=== PATIENT | female | born 1965 | race Caucasian/White ===

== ENCOUNTER 2016-09-06 14:34 | Outpatient (CLI) | payer OTHER ==
[~2016-09-06 14:34] MED LIST: ATENOLOL50 MG PO; LORAZEPAM0.5 MG PO; RISPERDAL1 MG PO; TRAZODONE PO
--- NOTE | 2016-09-06 15:36 | DIAGNOSTIC IMAGING REPORT ---
PROCEDURE: CT ABDOMEN/PELVIS W/O CONTRAST INDICATION: Right flank pain and hematuria. TECHNIQUE: Noncontrast axial images with sagittal and coronal reformations. COMPARISON: Compared CT abdomen and pelvis on 12/22/2014. FINDINGS: ABDOMEN: Kidneys and ureters are normal. No evidence of urinary tract calculus or obstruction. Moderate stool throughout the colon. Small bowel pattern is normal. Appendix is normal. Gallbladder, liver, spleen, pancreas, and aorta are normal. Mild levoscoliosis and moderate degenerative changes of the lumbar spine. There is a 20% old compression deformity of the L1 vertebral body. PELVIS: Uterus and adnexal structures are normal. No evidence of free fluid. IMPRESSION: 1. Normal kidneys and ureters. No evidence of urinary tract obstruction or calculus. 2. Moderate stool throughout the colon. Consider obstipation. 3. There is a 20% compression fracture of the superior endplate of L1 which appears old, although new since 12/22/2014. 4. Findings discussed with Dr. Isaac. All CT scans at this facility use dose modulation, iterative reconstruction, and/or weight-based dosing when appropriate to reduce radiation dose to as low as reasonably achievable.
== END 2016-09-06 23:00 ==
LOC: CT SRH 14:34
DX: R10.9 Unspecified abdominal pain (principal); K59.00 Constipation, unspecified
CPT/HCPCS: 90469; 90627

== ENCOUNTER → 2016-09-09 | Outpatient (CLI) | payer OTHER ==
--- NOTE | 2016-09-09 17:19 | DIAGNOSTIC IMAGING REPORT ---
PROCEDURE: US COMPLETE PELVIC W/TRANSVAG INDICATION: Right pelvic pain. TECHNIQUE: Transabdominal and endovaginal willson scale and color Doppler sonographic images of the female pelvis were obtained. [employer] (, SRT) COMPARISON: Comparison is made to CT abdomen and pelvis on 09/06/2016. FINDINGS: TRANSABDOMINAL SCANS: Uterus is of normal size (5.0 x 3.7 x 4.9 cm). Kidneys are normal TRANSVAGINAL SCANS: Endometrial thickness is normal (6 mm). Right ovary is of normal size (2.5 cm) with normal vascularity. Left ovary is not visualized (presumed atrophic). IMPRESSION: 1. Normal pelvic ultrasound. 2. Findings called to CRISTIAN March.
--- NOTE | 2016-09-09 17:19 | DIAGNOSTIC IMAGING REPORT ---
PROCEDURE: US COMPLETE PELVIC W/TRANSVAG INDICATION: Right pelvic pain. TECHNIQUE: Transabdominal and endovaginal willson scale and color Doppler sonographic images of the female pelvis were obtained. [employer] Trimmer (, SRT) COMPARISON: Comparison is made to CT abdomen and pelvis on 09/06/2016. FINDINGS: TRANSABDOMINAL SCANS: Uterus is of normal size (5.0 x 3.7 x 4.9 cm). Kidneys are normal TRANSVAGINAL SCANS: Endometrial thickness is normal (6 mm). Right ovary is of normal size (2.5 cm) with normal vascularity. Left ovary is not visualized (presumed atrophic). IMPRESSION: 1. Normal pelvic ultrasound. 2. Findings called to CRISTIAN March.
== END ==
LOC: US SRH 15:46
DX: R10.2 Pelvic and perineal pain (principal)
CPT/HCPCS: 90469; 91227; 91228